=== PATIENT | female | born 1955 | race Caucasian/White ===

== ENCOUNTER 2021-10-28 15:33 | Emergency (ER) | payer MEDICARE, OTHER ==
[~2021-10-28 15:33] MED LIST: DIALYVITE VI1250 MCG PO; INDERAL LA160 MG PO; MAG-OXIDE 400M400 MG PO; OS-CAL500 MG PO; SYNTHROID75 MCG PO; ZESTORETIC 20-1 EAC1 PO
[2021-10-28 17:08] LABS: BASOPHIL 1.1 % (0-2); EOSINOPHIL 2.1 % (0-7); HCT 39.2 % (37.0-47.0); HGB 12.5 g/dl (12.5-16.0); LYMPHOCYTE 27.1 % (15-48); MCH 31.5 pg (25.0-31.0); MCHC 31.9 g/dL (32.0-36.0); MCV 98.7 fL (78.0-100.0); MONOCYTE 11.4 % (0-12); MPV 10.9 fL (6.0-9.5); NEUTROPHIL 57.9 % (41-80); NRBC 0; PLT 240 K/uL (150-400); RBC 3.97 M/uL (4.20-5.40); RDW 13.8 % (11.5-14.0); WBC 5.6 K/uL (4.0-10.5)
[2021-10-28 17:21] LABS: BUN/CREAT RATIO (CALC) 28.4 RATIO; CREATININE 1.09 mg/dL (0.51-0.95); POTASSIUM 4.2 mmol/L (3.5-5.1)
[2021-10-28 17:53] LABS: CORONAVIRUS 2019 SARS-COV-2 NEGATIVE (NEGATIVE); INFLUENZA A NAA NEGATIVE (NEGATIVE)
[2021-10-28] MEDS ORDERED: ZPAK PO (19:21)
== END 2021-10-28 20:05 | disposition home or self-care (01) ==
LOC: FER 15:33
PROVIDERS: Nurse Practitioner Family
DX: J06.9 Acute upper respiratory infection, unspecified (principal); E86.0 Dehydration; I10 Essential (primary) hypertension; E11.9 Type 2 diabetes mellitus without complications; Z88.1 Allergy status to other antibiotic agents; Z88.6 Allergy status to analgesic agent; Z88.8 Allergy status to other drugs, medicaments and biological substances; Z20.822 Contact with and (suspected) exposure to COVID-19
CPT/HCPCS: 36415; 71045; 80048; 85025; J7030; U0002